=== PATIENT | female | born 1950 | race Caucasian/White ===

== ENCOUNTER 2017-12-14 15:45 | Emergency (ER) | payer BC, OTHER ==
[~2017-12-14] VITALS: Ht 172.7 cm; Wt 77.9 kg
[~2017-12-14 15:45] MED LIST: CIPR-255 PO; ONDA4TAB7 SL
[2017-12-14 15:46] VITALS: TEMP 36.8; Ht 172.7 cm; Wt 77.9 kg
[2017-12-14] MEDS ORDERED: TRAMADOL HCL 50 MG TAB PO STA (15:58)
[2017-12-14] MEDS ORDERED: IBUPROFEN 200 MG TAB PO STA (15:58)
[2017-12-14] MEDS ORDERED: DIPHTHERIA/TETANUS/PERTUSSIS 0.5 ML SYR/VIAL IM. ONE (16:00)
[2017-12-14] MEDS ORDERED: LIDOCAINE 1% BUFFERED INJ 20 ML VIAL INFIL ONE (16:00)
--- NOTE | 2017-12-14 16:33 | EMERGENCY ROOM VISIT NOTE ---
ED Visit Note First contact with patient: 15:48 Patient was seen by our PA/TERMINAL WORKER. I was involved in the patient's care and did evaluate the patient myself. I was involved in the care throughout the ER stay. Patient presents after falling. Her right hand laceration was cleansed and repaired. Her tetanus was updated. She is being discharged.
--- NOTE | 2017-12-14 16:46 | EMERGENCY ROOM VISIT NOTE ---
History First contact with patient: 15:48 Chief Complaint: LACERATION/CUT (SUT/DERMABOND) Stated Complaint: LACERATION ON RIGHT HAND Nursing Triage Summary: Pt was climbing over garden fence, slipped, and landed on right palm causing a laceration. Unsure if utd on tetanus vaccine. History of Present Illness The patient is a 67 year old female who presents to the Emergency Room with complaints of a right hand laceration and abrasion to the patient reports that she was attempting to climb over a garden fence that was wet from the rain, and slipped, falling onto her right hand. She reports that the top of the fence scratched her right neck as well. She cleaned the wounds on her neck with alcohol. She denies any neck pain, chest pain, difficulty swallowing or shortness of breath. She denies any significant bleeding from the right hand wound. The patient is right-hand dominant, and rates her hand discomfort a 5 out of 10. The patient is uncertain of her last tetanus immunization, and is requesting a tetanus booster. Review of Systems 6 system review was performed and was negative except for pertinent positives and negatives as indicated in history of present illness Past Medical/Surgical History Medical Problems: (1) Kidney stone Surgical Problems: (1) History of lithotripsy Family History Patient reports no known family medical history. Social History Smoking Status: Never Smoker Alcohol Use: occasionally Marital Status: Occupation Status: retired Current/Historical Medications Scheduled Ciprofloxacin Hcl (Cipro), 500 MG PO BID Scheduled PRN Ondansetron (Zofran Odt), 1-2 TABS SL Q6H PRN for Nausea Physical Exam Vital Signs Date Time Temp Pulse Resp B/P (MAP) Pulse Ox O2 Delivery O2 Flow Rate FiO2 18 15:46 36.8 71 18 118/80 95 Room Air Physical Exam CONSTITUTIONAL: Healthy and well nourished. Alert and oriented X 3 with positive affect. Patient does not appear in any acute distress. HEENT: Normocephalic, atraumatic. Pupils equal, round and reactive. Pharynx: No intraoral trauma or evidence for swelling or ecchymosis of the floor of the mouth. No evidence for posterior pharyngeal erythema or swelling. NECK: Patient has 2 superficial abrasions to the right anterolateral neck. She has full range of motion without any obvious discomfort. RESPIRATORY: Clear to auscultation bilaterally with no wheezing, crackles, rhonchi or stridor. MUSCULOSKELETAL: Examination of the right thenar eminence shows a 2.5 cm V- shaped laceration without active bleeding. The patient is able to flex and extend the thumb without any obvious discomfort. Negative anatomic snuffbox tenderness. Capillary refill of the thumb is less than 2 seconds. INTEGUMENTARY: No rash or other significant dermatologic conditions noted. NEUROLOGIC: Right thumb is sensory intact. Medical Decision & Procedures Medications Administered Medications (Trade) Dose Ordered Sig/[place] Route Start Time Stop Time Status Last Admin Dose Admin Ibuprofen (Advil Tab) 400 mg NOW STAT PO 12/14/17 15:58 12/14/17 16:00 DC 12/14/17 16:18 400 MG Tramadol HCl (Ultram Tab) 50 mg NOW STAT PO 12/14/17 15:58 12/14/17 16:00 DC 12/14/17 16:17 50 MG Diphtheria/ Pertussis/Tetanus Vacc (Adacel Inj) 0.5 ml ONCE ONCE IM. 12/14/17 16:00 12/14/17 16:01 DC 12/14/17 16:18 0.5 ML Procedure Laceration repair was performed under local anesthesia after receiving verbal consent from the patient. Using buffered 1% lidocaine without epinephrine, good local anesthesia was administered. The wound was then peripherally cleansed with iodine, then copiously pressure irrigated with approximately 100 cc of normal saline. Exploration of the wound does not show any underlying debris. The wound was then approximated using 4-0 nylon simple interrupted sutures. A bacitracin dressing was applied. The patient was also administered Adacel IM. ED Course Patient history and physical exam were performed. Nurse's notes were reviewed. Vital signs were reviewed and were normal. The patient was administered Advil 400 mg and Ultram 50 mg for pain. She was also administered Adacel IM. Laceration repair was performed under local anesthesia. The patient was provided additional verbal and written wound care instructions. Ice and elevation of the hand as needed for swelling and pain. Ibuprofen and/or Tylenol if needed for additional pain relief. The patient was offered a prescription for Ultram but refused. She was encouraged to have the sutures removed in 12-14 days, or seek reevaluation sooner for any signs of wound infection. The patient was happy with plan of care, voiced understanding of all discharge instructions, and denied any pain at the conclusion of my exam. The patient was also examined by Dr. Boston, ED attending physician, who agrees with workup and plan of care. Medical Decision Blood Pressure Screening Patient's blood pressure: Normal blood pressure Impression Primary Impression: Laceration of right hand Departure Information Dispostion Home / Self-Care Forms HOME CARE DOCUMENTATION FORM, IMPORTANT VISIT INFORMATION Patient Instructions My [facility] Additional Instructions Keep wound clean and dry. Do not allow any crusting or dried blood to accumulate on sutures. If this occurs, use a 1:1 solution of hydrogen peroxide/ water on a Q-tip to clean the wound. Use an antibiotic ointment for 3-4 days, then let wound dry. Suture removal in 12-14 days. Return sooner for any signs of infection (increasing redness, swelling, drainage). Ice and elevate for swelling and pain. Ibuprofen 600 mg and/or Tylenol 1000 mg every 6 hrs for pain. Ultram if needed for worse pain. Problem Qualifiers Primary Impression: Laceration of right hand Encounter type: initial encounter Foreign body presence: without foreign body Qualified Codes: S61.411A - Laceration without foreign body of right hand , initial encounter
[2017-12-14 16:50] VITALS: BP 148/71; PULSE 61; O2SAT 99
== END 2017-12-14 16:52 | disposition home or self-care (01) ==
LOC: C.EDB 15:46 → C.EDD 16:52
DX: S61.411A Laceration without foreign body of right hand, initial encounter (principal); S10.81XA Abrasion of other specified part of neck, initial encounter; W26.8XXA Contact with other sharp object(s), not elsewhere classified, initial encounter; Z23 Encounter for immunization; Z87.442 Personal history of urinary calculi